=== PATIENT | male | born 1985 | race African-American/Black ===

== ENCOUNTER 2017-12-14 12:56 | Emergency (ER) | payer OTHER ==
[~2017-12-14] VITALS: Ht 167.6 cm; Wt 65.8 kg
[~2017-12-14 12:56] MED LIST: NOHOMEMEDICATIONS
[2017-12-14 13:30] LABS: ABSOLUTE NEUTROPHILS 2.7 thou/uL (1.4-8.2); BASOPHILS 1.3 % (0.0-2.0); EOSINOPHILS 3.4 % (0.0-3.0); HEMATOCRIT 45.6 % (42.0-52.0); LYMPHOCYTES 34.8 % (24.0-44.0); MCH 32.6 pg (26.0-34.0); MCV 93.2 fL (80.0-100.0); PLATELET COUNT 198 thou/uL (150-400); POLYS 53.5 % (36.0-66.0); RBC 4.89 mil/uL (4.50-6.00); RDW 14.9 % (10.5-14.5); WBC 5.1 thou/uL (4.0-11.0)
[2017-12-14 13:34] LABS: CALCIUM 9.2 mg/dL (8.5-10.1); POTASSIUM 4.1 mmol/L (3.5-5.1)
[2017-12-14 17:59] LABS: URINE BILIRUBIN NEGATIVE (Negative); URINE BLOOD NEGATIVE (Negative); URINE CLARITY CLEAR; URINE COLOR YELLOW; URINE GLUCOSE-RANDOM* NEGATIVE (Negative); URINE KETONES NEGATIVE (Negative); URINE LEUKOCYTES-REFLEX NEGATIVE (Negative); URINE NITRITE-REFLEX NEGATIVE (Negative); URINE PROTEIN (DIPSTICK) NEGATIVE (Negative); URINE SPECIFIC GRAVITY <= 1.005 (1.005-1.035); URINE UROBILINOGEN 0.2 E.U./dl (0.2-1.0)
[2017-12-14 18:00] VITALS: BP 150/85
[2017-12-14 18:06] LABS: AMP/METHAMP Negative (Negative); BARBITURATES Negative (Negative); BENZODIAZEPINES POSITIVE (Negative); COCAINE Negative (Negative); METHADONE Negative (Negative); OPIATES Negative (Negative); PCP POSITIVE (Negative)
== END 2017-12-14 18:29 | disposition home or self-care (01) ==
LOC: ER 12:56
PROVIDERS: Emergency Medicine
DX: R56.9 Unspecified convulsions (principal); T48.1X1A Poisoning by skeletal muscle relaxants [neuromuscular blocking agents], accidental (unintentional), initial encounter; Y92.89 Other specified places as the place of occurrence of the external cause

== ENCOUNTER 2017-12-14 21:42 | Emergency (ER) | payer OTHER ==
[~2017-12-14] VITALS: Ht 162.6 cm; Wt 81.7 kg
[2017-12-15 02:04] VITALS: BP 149/81
== END 2017-12-15 02:05 | disposition home or self-care (01) ==
LOC: ER 21:42
DX: F16.129 Hallucinogen abuse with intoxication, unspecified (principal); F17.210 Nicotine dependence, cigarettes, uncomplicated